=== PATIENT | female | born 1990 | race Caucasian/White ===

== ENCOUNTER 2016-11-29 12:53 | Emergency (ER) | payer OTHER ==
[~2016-11-29] VITALS: Ht 165.1 cm; Wt 68.2 kg
--- NOTE | 2016-11-29 14:02 | REP ---
Clinical: Dizziness Comparison: None . Findings: The ventricles, sulci, and cisterns are normal in position and appearance. Stubbs-white differentiation is maintained. No acute intracranial hemorrhage, mass/mass effect, pathology or trauma/injury. No evidence for acute infarction. No extra-axial fluid collection. Calvarium is intact although there appear to be well demarcated lucencies suggesting prior surgery and correlation is recommended. Paranasal sinuses and mastoid air cells are clear. Impression: No evidence for acute intracranial pathology or trauma/injury. Calvarial changes suggesting the possibility of prior surgery. Signed by Ravindra Harrison MD 11/29/2016 01:54 P
--- NOTE | 2016-11-29 14:03 | REP ---
Clinical: Trauma . Technique: AP, lateral, bilateral oblique, and coned-down views. Findings: Alignment and lordosis is maintained. The vertebral bodies including transverse process and spinous processes are intact and normal. There is no evidence for acute fracture / compression injury or subluxation. No evidence for spondylolysis or spondylolisthesis. No significant degenerative change is noted. Impression: Normal lumbosacral spine radiograph series. Signed by Ravindra Harrison MD 11/29/2016 01:54 P
[2016-11-29 14:09] VITALS: BP 119/67
[2016-11-29] MEDS ORDERED: ZANA4TAB PO (14:11)
[2016-11-29] MEDS ORDERED: CLAR1TAB2 PO (14:11)
[2016-11-29] MEDS ORDERED: PRED20TA PO (14:11)
[2016-11-29] MEDS ORDERED: AUGM875T28 PO (14:11)
[2016-11-29] MEDS ORDERED: MOBI4TAB PO (14:11)
[2016-11-29] MEDS ORDERED: predniSONE 20 MG TAB PO ONE (14:15)
[2016-11-29] MEDS ORDERED: LORATADINE 10 MG TAB PO ONE (14:15)
[2016-11-29] MEDS ORDERED: AUGMENTIN 875 MG TAB PO ONE (14:15)
== END 2016-11-29 14:28 | disposition home or self-care (01) ==
LOC: M ED 12:53
DX: J01.90 Acute sinusitis, unspecified (principal); M54.5 Low back pain; Z72.0 Tobacco use